=== PATIENT | female | born 1985 | race Two or more races ===

== ENCOUNTER 2025-05-09 10:00 | Day surgery (SDC) | payer OTHER ==
[2025-05-03 09:44] VITALS: BP 119/72
[2025-05-03 10:05] LABS: BASO % 1.1 % (0.1-1.2); EOS # 0.34 (0.04-0.54); EOS % 6.1 % (0.7-7.0); LYMPH # 0.98 (1.18-3.74); LYMPH % 17.7 % (19.3-53.1); MEAN PLATELET VOLUME 10.20 fl (9.4-12.4); MONO # 0.73 (0.24-0.82); NEUT # 3.41 (1.56-6.13); NEUT % 61.7 % (34.0-71.1); RED CELL DISTRIBUTION WIDTH 13.2 % (11.6-14.4)
[2025-05-03 10:07] LABS: MONO % 13.2 % (4.7-12.5)
[2025-05-03 10:35] LABS: INR 1.04
[2025-05-03 10:43] LABS: ALT/SGPT 25 U/L (12-78); AST/SGOT 15 U/L (15-37); BILIRUBIN TOTAL 0.69 mg/dL (0.3-1.2); BUN CREA RATIO 25 (7.0-25.0); CREATININE SERUM 0.68 mg/dL (0.55-1.02); GFR 96.83; GLOBULINA 3.7 G/DL (2.4-3.5); GLUCOSE FASTING 81 mg/dL (65-100); HCG QUANTITATIVE < 1 mUI/mL (1-3); OSMOLALITY SERUM 280 MOSM/KG (275-295)
[~2025-05-09] VITALS: Ht 170.2 cm; Wt 60.3 kg
[~2025-05-09 10:00] MED LIST: ALLEGRA ALLERGY60 MG; DIBUCAINE 30 GM TUBE ONE; MUCINEX600 MG
[2025-05-09] MEDS ORDERED: CEFAZOLIN SODIUM 1,000 MG VIAL ONE (11:48)
[2025-05-09] MEDS ORDERED: POVIDONE-IODINE 118 ML BOTT TOP ONE (12:24)
[2025-05-09] MEDS ORDERED: BUPIVACAINE HCL/MPF 0.5% 30ML VIAL ONE (12:25)
[2025-05-09] MEDS ORDERED: METHYLENE BLUE 50MG/10ML AMP IV ONE (14:35)
[2025-05-09] MEDS ORDERED: METRONIDAZOLE/SODIUM CHLORIDE 500 MG/100 ML PIGGYBACK IV ONE ×2 (15:13→15:30)
[2025-05-09] MEDS ORDERED: THROMBIN,HU/FIBRINOGEN/CALCIUM 10 ML SYRINGE TOP ONE (15:38)
[2025-05-09] MEDS ORDERED: VISTASEAL DUAL APPICATOR 1 EACH APPL TOP ONE (15:38)
[2025-05-09] MEDS ORDERED: LIDOCAINE HCL 1%/EPINEPHRINE 20ML VIAL IJ ONE (16:06)
[2025-05-09] MEDS ORDERED: SUGAMMADEX SODIUM 200 MG/2 ML VIAL IV ONE (16:10)
[2025-05-09] MEDS ORDERED: DOXYCYCLINE HYCLATE 100MG EACH PO ONE ×2 (17:45→18:15)
[2025-05-09] MEDS ORDERED: KETOROLAC TROMETHAMINE 30 MG VIAL IV ONE (19:00)
[2025-05-09] MEDS ORDERED: PROMETHAZINE HCL 50 MG/ML AMPUL IM ONE (19:00)
[2025-05-09] MEDS ORDERED: ONDANSETRON HCL 2 MG/ML VIAL ONE (19:39)
[2025-05-09] MEDS ORDERED: KETOROLAC TROMETHAMINE 30 MG VIAL ONE (20:08)
== END 2025-05-09 21:05 | disposition home or self-care (01) ==
LOC: CIR.AMB 10:00
PROVIDERS: ATTEND Student in an Organized Health Care Education/Training Program
DX: D39.12 Neoplasm of uncertain behavior of left ovary (principal); N83.292 Other ovarian cyst, left side; R10.20 Pelvic and perineal pain unspecified side; N80.03 Adenomyosis of the uterus; N94.6 Dysmenorrhea, unspecified; N80.8 Other endometriosis